=== PATIENT | male | born 1990 | race Caucasian/White ===

== ENCOUNTER 2018-07-21 07:47 | Observation (INO) | payer OTHER, BC ==
[~2018-07-21] VITALS: Ht 180.3 cm; Wt 124.7 kg
[2018-07-21 08:39] LABS: BASOPHILS ABSOLUTE AUTO 0.04 K/mm3 (0.00-0.23); BASOPHILS PERCENT AUTO 0 % (0-2); EOSINOPHILS ABSOLUTE AUTO 0.22 K/mm3 (0.00-0.68); EOSINOPHILS PERCENT AUTO 1 % (0-6); Hematocrit 43.8 % (37.0-53.0); Hemoglobin 14.8 g/dL (13.5-17.5); IMMATURE GRAN ABSOLUTE AUTO 0.05 K/mm3 (0.00-0.10); IMMATURE GRAN PERCENT AUTO 0 % (0-1); LYMPHOCYTES PERCENT AUTO 11 % (21-46); MONOCYTES ABSOLUTE AUTO 0.86 K/mm3 (0.16-1.47); MONOCYTES PERCENT AUTO 5 % (4-13); Mean Corpuscular HGB Conc 33.8 g/dL (31.5-36.5); Mean Corpuscular Volume 86 fL (80-100); Mean Platelet Volume 11.3 fL (9.1-12.4); NEUTROPHILS ABSOLUTE AUTO 12.98 K/mm3 (1.96-9.15); NEUTROPHILS PERCENT AUTO 82 % (41-73); Platelet Count 209 K/mm3 (150-400); RDW Coefficient Variation 12.3 % (11.7-14.2); RDW Standard Deviation 38.5 fL (35.1-46.3); White Blood Cell Count 15.85 K/mm3 (4.00-11.30)
[2018-07-21 08:50] LABS: Alanine Aminotransfer (ALT/SGP 30 U/L (12-78); Albumin, Blood 3.8 g/dL (3.4-5.0); Alk Phos 93 U/L (50-136); Anion Gap 7 mmol/L (6-16); Aspartate Aminotrans (AST/SGOT 14 U/L (12-37); Bilirubin, Total 0.6 mg/dL (0.1-1.0); Blood Urea Nitrogen 12 mg/dL (8-24); Bun/Creatinine Ratio 12.9 (12.0-20.0); CO2, Blood 25 mmol/L (21-32); Calcium, Blood 8.4 mg/dL (8.5-10.1); Chloride, Blood 107 mmol/L (98-108); Creatinine, Blood 0.93 mg/dL (0.60-1.20); Globulin, Blood 3.8 g/dL (2.2-4.0); Glomerular Filtration Rate >60 (60-); Glucose, Blood 95 mg/dL (70-99); Potassium, Blood 3.8 mmol/L (3.5-5.5); Sodium, Blood 139 mmol/L (136-145); Total Protein, Blood 7.6 g/dL (6.4-8.2)
[2018-07-21 10:56] LABS: Source, Urine Catheter
[2018-07-21 10:59] LABS: Bilirubin, Urine Neg (Neg); Blood, Urine Neg (Neg); Glucose Qualitative, Urine Neg (Neg); Ketones, Urine Neg (Neg); Leukocyte Esterase, Urine Neg (Neg); Nitrite, Urine Neg (Neg); Protein, Urine Neg (Neg); Urobilinogen, Urine NORM (Normal)
[2018-07-21 11:16] LABS: Appearance, Urine Clear (Clear); Color, Urine Yellow (P-Yellow)
[2018-07-21] MEDS ORDERED: Zantac150 MG PO (11:35)
[2018-07-22] MEDS ORDERED: Augmentin 875-1 EACH PO (13:51)
[2018-07-22] MEDS ORDERED: HYDR1TAB94 PO (13:52)
== END 2018-07-22 14:16 | disposition home or self-care (01) ==
LOC: ER 07:47 → SURS 07:48 → ER 09:52 → SURS 11:08
PROVIDERS: Emergency Medicine; Physician Assistant; Surgery
PROC: 0DTJ4ZZ Resection of Appendix, Percutaneous Endoscopic Approach (ICD-10-PCS; principal; 2018-07-21 16:30)
DX: K35.80 Unspecified acute appendicitis (principal); Z87.891 Personal history of nicotine dependence
CPT/HCPCS: 36415; 72192; 80053; 81003; 83690; 85025; 88304; 96361; 96365; 96366; 96375; 96376; 99285-25; G0378; J0295; J1885; J2250; J2405; J2710; J3010; J7030; J7120

== ENCOUNTER 2018-11-18 19:16 | Emergency (ER) | payer OTHER, BC ==
[~2018-11-18] VITALS: Ht 182.9 cm; Wt 126.1 kg
[~2018-11-18 19:16] MED LIST: Augmentin 875-1 EACH PO; HYDR1TAB94 PO; Zantac150 MG PO
== END 2018-11-18 20:01 | disposition home or self-care (01) ==
LOC: ER 19:16
DX: M25.511 Pain in right shoulder (principal); Z79.899 Other long term (current) drug therapy; Z87.891 Personal history of nicotine dependence
CPT/HCPCS: 73030; 99283-25

== ENCOUNTER → 2022-02-20 | Outpatient (CLI) | payer OTHER ==
[2022-02-20 13:28] LABS: BASOPHILS ABSOLUTE AUTO 0.02 K/mm3 (0.00-0.23); BASOPHILS PERCENT AUTO 0 % (0-2); EOSINOPHILS ABSOLUTE AUTO 0.09 K/mm3 (0.00-0.68); EOSINOPHILS PERCENT AUTO 1 % (0-6); Hematocrit 43.4 % (37.0-53.0); Hemoglobin 14.9 g/dL (13.5-17.5); IMMATURE GRAN ABSOLUTE AUTO 0.03 K/mm3 (0.00-0.10); IMMATURE GRAN PERCENT AUTO 0 % (0-1); LYMPHOCYTES ABSOLUTE AUTO 1.91 K/mm3 (0.84-5.20); LYMPHOCYTES PERCENT AUTO 23 % (21-46); MONOCYTES ABSOLUTE AUTO 0.51 K/mm3 (0.16-1.47); MONOCYTES PERCENT AUTO 6 % (4-13); Mean Corpuscular HGB 28.7 pg (26.0-34.0); Mean Corpuscular HGB Conc 34.3 g/dL (31.5-36.5); Mean Corpuscular Volume 84 fL (80-100); Mean Platelet Volume 11.2 fL (9.1-12.4); NEUTROPHILS ABSOLUTE AUTO 5.73 K/mm3 (1.96-9.15); NEUTROPHILS PERCENT AUTO 69 % (41-73); Platelet Count 233 K/mm3 (150-400); RDW Coefficient Variation 12.6 % (11.7-14.2); RDW Standard Deviation 38.1 fL (35.1-46.3); Red Blood Cell Count 5.19 M/mm3 (4.30-5.90); White Blood Cell Count 8.29 K/mm3 (4.00-11.30)
[2022-02-20 13:47] LABS: Albumin, Blood 3.8 g/dL (3.4-5.0); Bilirubin, Total 0.8 mg/dL (0.1-1.0); Bun/Creatinine Ratio 9.5 (12.0-20.0); Calcium, Blood 9.1 mg/dL (8.5-10.1); Creatinine, Blood 0.95 mg/dL (0.60-1.20); Globulin, Blood 3.9 g/dL (2.2-4.0); Total Protein, Blood 7.7 g/dL (6.4-8.2)
== END | disposition home or self-care (01) ==
LOC: LAB 13:20 → LAB SHORT 13:20
PROVIDERS: Chiropractor
DX: R10.11 Right upper quadrant pain (principal)
CPT/HCPCS: 80053; 83690; 85025

== ENCOUNTER → 2022-06-04 | Outpatient (CLI) | payer OTHER | LOC: LAB SHORT 12:11 → LAB 12:11 | DX: R19.5 Other fecal abnormalities (principal) | CPT/HCPCS: 82653 ==

== ENCOUNTER 2024-08-14 06:04 | Day surgery (SDC) | payer OTHER ==
[~2024-08-14] VITALS: Ht 180.3 cm; Wt 148.1 kg
[~2024-08-14 06:04] MED LIST changes: +AMLO10 PO; +BUPR150ER; +Celexa20 MG; +Celexa20 MG PO; +DOCU100; +FAMO20 PO; +Flonase 0.05% N16 GM; +HYOS.125; +LOSA25 PO; +PANT40 PO; +SUCR1 PO
[2024-08-14] MEDS ORDERED: Lactated Ringer's 1,000 ML IV SCH (06:25)
[2024-08-14 06:27] VITALS: BP 147/89
--- NOTE | 2024-08-14 06:37 | NUR ---
Ambulatory in Day Surgery History, Chart, Medications and Allergies reviewed before start of procedure. Pre-Op teaching done. Pt verbalizes understanding. Patient States Post-Procedure ride home has been arranged.
[2024-08-14] MEDS ORDERED: propofoL 50 ML IV ONE (07:36)
--- NOTE | 2024-08-14 07:53 | NUR ---
08/14/24 0753 Barbara Villarreal History, Chart, Medications and Allergies reviewed before start of procedure.BITE BLOCK IN PRIOR TO PROCEDURE. ALEXSANDRA PROVIDES ANESTHESIA
[2024-08-14 08:02] VITALS: BP 134/77
--- NOTE | 2024-08-14 08:05 | NUR ---
REPORT RECEIVED FROM JIGNA EASLEY. VSS. PT ON RA. PT [id number]. PT ABLE TO REPOSITION SELF IN BED. PT REQUESTING PO FLUIDS AND TOLERATING THEM WELL. PT DENIES PAIN, NAUSEA OR OTHER DISCOMFORTS.
[2024-08-14 08:14] VITALS: BP 140/79
== END 2024-08-14 08:22 | disposition home or self-care (01) ==
LOC: ORSCMMR 06:04 → ORD 07:45 → ORSCMMR 08:22
PROVIDERS: Internal Medicine Gastroenterology
PROC: 0DJ08ZZ Inspection of Upper Intestinal Tract, Via Natural or Artificial Opening Endoscopic (ICD-10-PCS; principal; 2024-08-14 07:45)
DX: K21.9 Gastro-esophageal reflux disease without esophagitis (principal); R10.13 Epigastric pain; Z80.0 Family history of malignant neoplasm of digestive organs; K58.2 Mixed irritable bowel syndrome; Z87.891 Personal history of nicotine dependence; Z79.899 Other long term (current) drug therapy
CPT/HCPCS: J2704; J7120

== ENCOUNTER 2024-10-06 08:54 | Day surgery (SDC) | payer OTHER ==
[~2024-10-06] VITALS: Ht 180.3 cm; Wt 143.6 kg
[~2024-10-06 08:54] MED LIST changes: +EPINEPhrine HCl 1 MG/ML 1ML Amp ONE; +Lactated Ringer's 1,000 ML IV ONE
[2024-10-06] MEDS ORDERED: CeFAZolin Sodium 3,000 MG VIAL ONE (09:16)
[2024-10-06] MEDS ORDERED: Tranexamic Acid 100 ML IV ONE (09:19)
[2024-10-06] MEDS ORDERED: propofoL 20 ML IV ONE (09:43)
[2024-10-06] MEDS ORDERED: FentaNYL Citrate 50 MCG/ML 2 ML Injection ONE ×2 (09:44→10:01)
[2024-10-06] MEDS ORDERED: Phentermine HCl30 MG (09:48)
[2024-10-06] MEDS ORDERED: Lactated Ringer's 1,000 ML IV ONE (09:52)
[2024-10-06] MEDS ORDERED: Midazolam HCl 1MG / ML 2ML Vial ONE (10:01)
[2024-10-06] MEDS ORDERED: EPINEPhrine HCl 1 MG/ML 1ML Amp ONE (10:01)
[2024-10-06] MEDS ORDERED: Bupivacaine 0.5% HCl 5 MG/ML 30MLVIAL ONE (10:01)
--- NOTE | 2024-10-06 10:16 | NUR ---
10/06/24 1016 Kaela Parsons TIME OUT DONE PRIOR TO NERVE BLOCK. PT TOLERATED BLOCK WELL.
[2024-10-06] MEDS ORDERED: Ondansetron HCl 2 MG / ML 2ML Vial ONE (10:33)
[2024-10-06] MEDS ORDERED: Dexamethasone Sod Phos 10 MG/ML 1ML VIAL ONE (10:33)
[2024-10-06] MEDS ORDERED: Rocuronium Bromide 10 MG/ML 5ML Injection IV ONE ×2 (10:33→10:54)
[2024-10-06] MEDS ORDERED: SuccINYLCHOLINE Chloride 100 MG/5 ML 5MLSYR ONE (10:33)
[2024-10-06] MEDS ORDERED: Labetalol HCL 5 MG/ML 4ML Injection (Single Dose) ONE (10:38)
[2024-10-06] MEDS ORDERED: Sugammadex Sodium 200 MG/2ML SDV (100 MG/ML) ONE (11:42)
--- NOTE | 2024-10-06 12:08 | NUR ---
10/06/24 1208 GIAN PERSON PAIN/PINCHING FEELING BEHIND RIGHT ARM. PT POINTED TO AREA, IT IS NOT RELATED TO POLAR PACK/BAND. JUST TAPE COVERING THE AREA THAT IS BOTHERING HIM. STATES PAIN IS 3/10 AND TOLERABLE. DENIES NAUSEA AND IS COMFORTABLE TO TEMP AT THIS TIME.
--- NOTE | 2024-10-06 12:24 | NUR ---
10/06/24 1224 GIAN PERSON PT CONTINUES TO NOTE A PINCH/PULL FEELING ON BACK OF RIGHT UPPER ARM. I DID CLEAN SOME BLOOD CLOSE TO THAT AREA BUT NO OBVIOUS REASON. PT ALERT. STATES PAIN 3/10 AND TOLERABLE.
[2024-10-06] MEDS ORDERED: OxyCODONE HCL 5 MG TAB ONE (12:59)
[2024-10-06 13:04] VITALS: BP 130/82
== END 2024-10-06 13:30 | disposition home or self-care (01) ==
LOC: ORSCSDS 08:54
PROVIDERS: Orthopaedic Surgery Sports Medicine
PROC: 0RQJ4ZZ Repair Right Shoulder Joint, Percutaneous Endoscopic Approach (ICD-10-PCS; principal; 2024-10-06 10:45)
PROC: 0LS34ZZ Reposition Right Upper Arm Tendon, Percutaneous Endoscopic Approach (ICD-10-PCS; principal; 2024-10-06 10:45)
PROC: 0RNJ4ZZ Release Right Shoulder Joint, Percutaneous Endoscopic Approach (ICD-10-PCS; principal; 2024-10-06 10:45)
DX: S43.431A Superior glenoid labrum lesion of right shoulder, initial encounter (principal); M75.41 Impingement syndrome of right shoulder; I10 Essential (primary) hypertension; G47.33 Obstructive sleep apnea (adult) (pediatric); E66.01 Morbid (severe) obesity due to excess calories; Z68.41 Body mass index [BMI] 40.0-44.9, adult; K21.9 Gastro-esophageal reflux disease without esophagitis; F41.9 Anxiety disorder, unspecified; Z79.899 Other long term (current) drug therapy; Z87.891 Personal history of nicotine dependence
CPT/HCPCS: A9270; C1713; J0171; J0330; J0690; J1100; J2250; J2405; J2704; J3010; J7120